=== PATIENT | female | born 1990 | race Two or more races ===

== ENCOUNTER 2024-04-15 07:42 | Emergency (ER) | payer MEDICAID ==
[~2024-04-15] VITALS: Ht 157.5 cm; Wt 45.7 kg
[2024-04-15 09:05] LABS: Amphetamine Screen, Urine Neg (NEGATIVE); Barbiturate Scree,Urine Neg (NEGATIVE); Benzodiazephine Screen, Urine Neg (NEGATIVE); Cannabinoid Screen, Urine Neg (NEGATIVE); Cocaine Screen, Urine Neg (NEGATIVE); Opiate Scree,Urine Neg (NEGATIVE); Phencyclidine Screen, Urine Neg (NEGATIVE)
[2024-04-15 09:09] LABS: Urine Bacteria FEW /hpf (None Seen); Urine Blood Negative /uL (Negative); Urine Clarity Clear (Clear); Urine Color Light-Orange (Yellow); Urine Protein, UAD TRACE (Negative); Urine Urobilinogen Normal (Negative); Urine WBC 1 /hpf (0 - 5); Urine pH 6.5 (5.0-9.0)
[2024-04-15] MEDS: SODIUM CHLORIDE 0.9% 1,000 ML IV ONE (10:03)
[2024-04-15] MEDS: FAMOTIDINE (10MG/ML) 2ML VL IV ONE (10:04)
[2024-04-15] MEDS: MULTIPLE VITAMIN TAB PO ONE (10:04)
[2024-04-15] MEDS: ONDANSETRON HCL 4 MG/2 ML VIAL IV ONE (10:04)
[2024-04-15] MEDS: MAALOX PLUS or MAALOX 30 ML PO ONE (10:05)
[2024-04-15] MEDS: THIAMINE HCL 100 MG TAB PO ONE (10:05)
[2024-04-15 10:07] LABS: Basophils # (auto) 0 10 ^3/uL (0-0.2); Basophils % (auto) 0.4 % (0.0-2.0); Eosinophils # (auto) 0 10 ^3/uL (0-0.8); Eosinophils % (auto) 0.3 % (0.0-7.0); Hematocrit 40.3 % (36.0-46.0); Hemoglobin 13.5 g/dL (12.2-16.2); Lymphocytes # (auto) 1.1 10 ^3/uL (0.4-5.4); Mean Corpuscular Hemoglobin 32.4 pg (28.0-32.0); Mean Corpuscular Hgb Conc. 33.4 g/dL (32.0-36.0); Monocytes # (auto) 0.5 10 ^3/uL (0-1.3); Monocytes % (auto) 5.7 % (0.0-12.0); Neutrophils # (auto) 6.3 10 ^3/uL (1.6-8.6); Neutrophils % (auto) 79.6 % (37.0-80.0); Red Blood Cells 4.16 10^6/uL (4.0-5.20); Red Cell Distribution Width 13.8 % (11.8-14.3); White Blood Cell 7.9 10^3/uL (4.4-10.8)
[2024-04-15] MEDS: LORazepam 2MG/ML-1ML VIAL IV ONE (10:10)
[2024-04-15 10:17] VITALS: BP 126/85; PULSE 91; RESP 12; TEMP 97.8; O2SAT 97
[2024-04-15 10:28] LABS: Alanine Aminotransferase 126 U/L (7-40); Albumin 4.9 g/dL (3.2-4.8); Alkaline Phosphatase 91 U/L (46-116); Anion Gap 8 (5-15); Aspartate Aminotransferase 191 U/L (13-40); BUN/Creatinine Ratio 8.6 (10.0-20.0); Bilirubin, Total 1.8 mg/dL (0.2-1.0); Blood Alcohol 5.5 mg/dL (<10); Blood Urea Nitrogen < 5 mg/dL (9-23); Calcium 9.9 mg/dL (8.5-10.1); Carbon Dioxide 27 mmol/L (20-30); Chloride 97 mmol/L (98-107); Glucose 83 mg/dL (74-106); Sodium 132 mmol/L (136-145); Total Protein 8.1 g/dL (5.7-8.2)
[2024-04-15 10:46] LABS: INR 1.03 (0.9-1.15); Prothrombin Time 10.9 sec (9.3-11.8)
[2024-04-15 11:30] LABS: Acetaminophen < 2.0 UG/ML (10.0-20.0)
[2024-04-15 11:33] LABS: Salicylate < 3.0 mg/dL (2.8-20.0)
[2024-04-15] MEDS ORDERED: ZOFR4T PO (11:50)
[2024-04-15] MEDS ORDERED: CHL25C GT (11:50)
== END 2024-04-15 11:54 | disposition home or self-care (01) ==
LOC: ER 07:42
DX: F10.20 Alcohol dependence, uncomplicated (principal); R10.2 Pelvic and perineal pain; J45.909 Unspecified asthma, uncomplicated; F32.A Depression, unspecified; Y90.0 Blood alcohol level of less than 20 mg/100 ml
CPT/HCPCS: 36415; 80053; 80307; 80320; 80329; 81001; 83036; 84702; 85025; 85610; 96361; 96374; 96375; 99284; J2405; J3490; J7030

== ENCOUNTER 2024-04-20 20:17 | Emergency (ER) | payer MEDICAID ==
[~2024-04-20] VITALS: Ht 157.5 cm; Wt 48.3 kg
[~2024-04-20 20:17] MED LIST: CHL25C GT; ZOFR4T PO
[2024-04-20 20:22] VITALS: BP 121/81; PULSE 105; RESP 20; TEMP 98.6
[2024-04-20] MEDS ORDERED: HYDR-4902 PO (22:11)
[2024-04-20] MEDS ORDERED: IBUP-1454 PO (22:11)
[2024-04-20] MEDS: KETOROLAC TROMETH 30 MG/ML 1ML VIAL IM ONE (22:55)
[2024-04-20 23:01] VITALS: O2SAT 98
== END 2024-04-20 23:30 | disposition home or self-care (01) ==
LOC: ER 20:17
DX: S20.211A Contusion of right front wall of thorax, initial encounter (principal); J45.909 Unspecified asthma, uncomplicated; F32.9 Major depressive disorder, single episode, unspecified; F10.90 Alcohol use, unspecified, uncomplicated; Z79.899 Other long term (current) drug therapy; W18.39XA Other fall on same level, initial encounter; Y93.E1 Activity, personal bathing and showering; Y92.89 Other specified places as the place of occurrence of the external cause; Y99.8 Other external cause status; Y90.0 Blood alcohol level of less than 20 mg/100 ml
CPT/HCPCS: 71111; 96372; 99283; J1885

== ENCOUNTER 2024-06-09 07:06 | Emergency (ER) | payer SELFPAY ==
[~2024-06-09] VITALS: Ht 160 cm; Wt 46.1 kg
[~2024-06-09 07:06] MED LIST changes: +HYDR-4902 PO; +IBUP-1454 PO
[2024-06-09] MEDS: SODIUM CHLORIDE 0.9% 1,000 ML IV ONE (08:06)
[2024-06-09 08:09] VITALS: PULSE 88; RESP 20; TEMP 97.9; O2SAT 99
[2024-06-09 08:11] LABS: Alanine Aminotransferase 65 U/L (7-40); Albumin 4.4 g/dL (3.2-4.8); Alkaline Phosphatase 95 U/L (46-116); Anion Gap 9 (5-15); Aspartate Aminotransferase 177 U/L (13-40); Blood Alcohol 153.1 mg/dL (<10); Calcium 9.3 mg/dL (8.7-10.4); Carbon Dioxide 26 mmol/L (20-30); Chloride 104 mmol/L (98-107); Glucose 105 mg/dL (74-106); Potassium 3.6 mmol/L (3.5-5.1); Sodium 139 mmol/L (136-145)
[2024-06-09 08:12] LABS: Bilirubin, Total 0.5 mg/dL (0.2-1.0)
[2024-06-09 08:16] LABS: BUN/Creatinine Ratio 6.7 (10.0-20.0); Blood Urea Nitrogen < 5 mg/dL (9-23)
[2024-06-09 08:26] LABS: Basophils # (auto) 0 10 ^3/uL (0-0.2); Basophils % (auto) 0.7 % (0.0-2.0); Eosinophils # (auto) 0 10 ^3/uL (0-0.8); Eosinophils % (auto) 0.6 % (0.0-7.0); Hematocrit 42.2 % (36.0-46.0); Hemoglobin 13.9 g/dL (12.2-16.2); Lymphocytes # (auto) 1.6 10 ^3/uL (0.4-5.4); Lymphocytes % (auto) 27.1 % (10.0-50.0); Mean Corpuscular Hemoglobin 32.2 pg (28.0-32.0); Mean Corpuscular Hgb Conc. 32.9 g/dL (32.0-36.0); Mean Corpuscular Volume 97.9 fL (80.0-100.0); Monocytes # (auto) 0.4 10 ^3/uL (0-1.3); Monocytes % (auto) 6.4 % (0.0-12.0); Neutrophils # (auto) 3.9 10 ^3/uL (1.6-8.6); Neutrophils % (auto) 65.2 % (37.0-80.0); Nucleated Red Blood Cells % 0.2 %; Platelet Count (auto) 284 10^3/uL (140-450); Red Blood Cells 4.31 10^6/uL (4.0-5.20); Red Cell Distribution Width 14.7 % (11.8-14.3)
[2024-06-09] MEDS: LORazepam 2MG/ML-1ML VIAL IV ONE (08:59)
[2024-06-09] MEDS: PROCHLORPERAZINE EDISYLATE 5 MG/ML 2ML VIAL IV ONE (08:59)
[2024-06-09] MEDS: FOLIC ACID 1 MG, MAGNESIUM SULF SDV 50% 8 MEQ, MULTIPLE VITAMIN 10 ML, THIAMINE INJ 100... INJ ONE (09:55)
[2024-06-09 10:04] LABS: Urine Bacteria None Seen /hpf (None Seen)
[2024-06-09 10:10] LABS: Urine Blood Negative /uL (Negative); Urine Budding Yeast OCCASIONAL /hpf (None Seen); Urine Clarity Turbid (Clear); Urine Color Light-Yellow (Yellow); Urine Mucus FEW (None Seen); Urine Protein, UAD TRACE (Negative); Urine Specific Gravity 1.007 (1.001-1.035); Urine Urobilinogen Normal (Negative); Urine WBC 2 /hpf (0 - 5); Urine pH 5.5 (5.0-9.0)
[2024-06-09 11:00] VITALS: BP 125/83; PULSE 111; RESP 16; O2SAT 98
[2024-06-10] MEDS ORDERED: FOLIC ACID 1 MG, MAGNESIUM SULF SDV 50% 8 MEQ, MULTIPLE VITAMIN 10 ML, THIAMINE INJ 100... INJ SCH (18:00)
== END 2024-06-09 12:45 | disposition left against medical advice (07) ==
LOC: ER 07:06
DX: R11.2 Nausea with vomiting, unspecified (principal); F10.139 Alcohol abuse with withdrawal, unspecified; J45.909 Unspecified asthma, uncomplicated
CPT/HCPCS: 36415; 80053; 80320; 81001; 85025; 96361; 96365; 96366; 96375; 99285; J0780; J2060; J3411; J3475; J7030

== ENCOUNTER 2024-09-08 12:36 | Emergency (ER) | payer MEDICAID ==
[~2024-09-08] VITALS: Ht 160 cm; Wt 46.5 kg
[2024-09-08 12:51] VITALS: BP 108/75; PULSE 125; RESP 16; O2SAT 96
[2024-09-08] MEDS ORDERED: HYDROcodone-ACET 7.5/325MG TAB PO ONE (13:00)
--- NOTE | 2024-09-08 15:16 | ED.PDOC ---
Musculoskeletal HPI Comments Patient eloped Chief Complaint: Rib Pain Time Seen by MD: 12:55 Primary Care Provider: UNKNOWN Reviewed Notes: Nurses Notes, Medications, Allergies Allergies: Coded Allergies: No Known Drug Allergy (Verified Allergy, Unknown, 04/15/24) Home Meds Active Scripts Ibuprofen (Ibuprofen) 600 Mg Tab, 1 TAB PO TID, #20 TAB Prov:LEIGHTON [facility]PO [facility] 04/20/24 Hydrocodone-Acetaminophen (Hydrocodone Bitartrate/AC 5-325 mg) 1 Tab Tab, 1 TAB PO Q6HPRN PRN, #15 TAB Prov:LEIGHTON CAMPO [facility] 04/20/24 Chlordiazepoxide Hcl (Librium) 25 Mg Cp, 25 MG GT BID for 10 Days, #20 CAP 0 Refills Prov:PATRICIA PENG MD 04/15/24 Ondansetron Odt 4MG Tab (ZOFRAN PO) 4 Mg Tb, 4 MG PO TID PRN, #20 TAB 0 Refills ODT TAB-DISSOLVE IN MOUTH, THEN SWALLOW Prov:PATRICIA PENG MD 04/15/24 Mode of Arrival: Ambulatory Past Medical History PAST MEDICAL HISTORY: Asthma, Depression Surgical History: Denies all surgeries DATABASE ADMIN History: No Pertinent DATABASE ADMIN History Family History Family History: No family hx of Cancer, No family hx of DM, No family hx of Heart ange, No family hx of HTN, No family hx ofKidney ange, No family hx of Liver ange, No family hx of Lung ange, No family hx of Stroke Social History Smoker: Non-Smoker Alcohol: Heavy Drugs: Denies Drug Use Lives In: Home All Other Systems: Reviewed and Negative (Per HPI) Physical Exam General Appearance: No Apparent Distress, Normal HEENT: Normal ENT Inspection, Pharynx Normal, TMs Normal Neck: Full Range of Motion, Non-Tender, Normal, Normal Inspection Respiratory: Chest Non-Tender, Lungs Clear, No Accessory Muscle Use, No Respiratory Distress, Normal Breath Sounds Cardiovascular: No Edema, No JVD, No Murmur, No Gallop, Normal Peripheral P ulses, Regular Rate/Rhythm Breast Exam: Deferred Gastrointestinal: No Organomegaly, Non Tender, No Pulsatile Mass, Normal Bowel Sounds, Soft Genitalia: Deferred Pelvic: Deferred Rectal: Deferred Extremities: No calf tenderness, Normal capillary refill, Normal inspection, Normal range of motion, Non-tender, No pedal edema Musculoskeletal : Apperance: Normal Neurologic: Alert, adoption agent II-XII nml as Tested, No Motor Deficits, Normal Affect, Normal Mood, No Sensory Deficits Cerebellar Function: Normal Reflexes: Normal Skin: Dry, Normal Color, Warm Lymphatic: No Adenopathy Was a procedure done? Was a procedure done?: No Differential Diagnosis EXT Differential Diagnosis: Sprain X-Ray, Labs, Meds, VS Vital Signs Date Time Temp Pulse Resp B/P (MAP) Pulse Ox O2 Delivery O2 Flow Rate FiO2 09/08/24 12:51 97.9 125 16 108/75 (86) 96 Time of 1ST Reevaluation: 15:16 Reevaluation 1ST: Improved Patient Education/Counseling: Diagnosis, Treatment Family Education/Counseling: Diagnosis, Treatment Departure 1 Departure Time of Disposition: 15:16 Impression: Primary Impression: Eloped from emergency department Disposition: 07 LEFT AWOL/ELOPED Condition: Fair Critical Care Note Critical Care Time?: No Stability Stability form required: No Heart Score Heart Score: Heart Score Response (Comments) Value History N/A 0 EKG N/A 0 Age N/A 0 Risk Factors N/A 0 Troponin N/A 0 Total 0 SANAM DAVENPORT NP Sep 08, 2024 15:16
== END 2024-09-08 15:16 | disposition left against medical advice (07) ==
LOC: ER 12:36
DX: R07.81 Pleurodynia (principal); J45.909 Unspecified asthma, uncomplicated; Z79.1 Long term (current) use of non-steroidal anti-inflammatories (NSAID)